=== PATIENT | female | born 1995 | race Caucasian/White ===

== ENCOUNTER → 2020-11-07 13:06 | Outpatient (CLI) | payer OTHER, SELFPAY ==
[2020-11-07 14:57] LABS: Color, Urine Straw (Yellow); Glucose, Dipstick Normal (Normal); Ketone-Dipstick Negative (Negative); Leukocyte Esterase-Dipstick Negative /ul (Negative); Nitrite-Dipstick Negative (Negative); Occult Blood-Urine Negative /ul (Negative); Protein-Dipstick Negative (Negative); Urine Bilirubin Dipstick Negative (Negative); Urine Clarity Clear (Clear); Urine Urobilinogen Normal (Normal); Urine pH 6.5 (5.0 - 8.0)
[2020-11-07 14:58] LABS: Absolute Lymphocyte Count 2.51 X10^3/uL (0.83-4.51); Absolute Neutrophil Count 10.9 X10^3/uL (2.0-7.7); Basophil# 0.06 X10^3/uL; Basophil% 0.4 % (0-1); Eosinophil# 0.17 X10^3/uL; Eosinophils% 1.1 % (0-5); Hematocrit 41.7 % (37-47); Hemoglobin 13.6 g/dL (12.0-15.0); Lymphocyte # 2.51 X10^3/ul (0.83-4.51); Lymphocyte % 16.8 % (19-41); Mean Corp Hgb Conc 32.6 g/dL (32-36); Mean Corpuscular Hgb 28.5 pg (27.0-32.0); Mean Corpuscular Volume 87.4 fL (81-99); Mean Platelet Vol. 9.3 fl (6.2-12.0); NRBC Flagged by Analyzer 0 % (0-5); Neutrophil # 10.89 X10^3/uL (2.7-7.7); Platelet Count 295 K/mm3 (150-450); RBC Distribution Width CV 13.3 % (11.6-14.6); RBC Distribution Width SD 43.1 fl (35.1-43.9); Red Blood Count 4.77 M/mm3 (4.2-5.4); White Blood Count 14.9 K/mm3 (4.4-11.0)
[2020-11-07 15:14] LABS: Amphetamine Urine VISTA NEGATIVE (<1000 ng/mL); Barbiturate Urine VISTA NEGATIVE (< 200 ng/mL); Benzodiazepine Urine VISTA NEGATIVE (< 200 ng/mL); Cocaine Urine VISTA NEGATIVE (< 300 ng/mL); Ecstacy Urine VISTA NEGATIVE (< 500 ng/mL); Methadone Urine VISTA NEGATIVE (< 300 ng/mL); PCP Urine VISTA NEGATIVE (< 25 ng/mL); THC Urine VISTA NEGATIVE (< 50 ng/mL); Vista UDS pH Range 6
[2020-11-07 15:23] LABS: Thyroid Stim Hormone (TSH) 2.16 uIU/mL (0.358-3.74)
[2020-11-07 15:52] LABS: HIV - WCH Non-Reactive (Nonreactive); Hepatitis B Surface Antigen Non-Reactive (Nonreactive); Hepatitis C Antibody Non-Reactive (Nonreactive); Rubella IgG Reactive (Nonreactive); Syphilis Antibodies Non-reactive; Vitamin D,25 Hydroxy 31.6 ng/mL
[2020-11-11 05:07] LABS: Chlamydia By Nucleic Acid AMP Negative (Negative)
[2020-11-11 08:53] LABS: Gonococcus By Nucleic Acid AMP Negative (Negative)
== END ==
PROVIDERS: Visit Provider Obstetrics & Gynecology
DX: Z11.3 Encounter for screening for infections with a predominantly sexual mode of transmission (principal); Z34.81 Encounter for supervision of other normal pregnancy, first trimester
CPT/HCPCS: 36415; 80307; 81002; 82306; 84443; 85025; 86703; 86762; 86780; 86803; 87086; 87088; 87340; 87491; 87591

== ENCOUNTER 2021-04-01 13:34 | Outpatient (CLI) | payer OTHER, SELFPAY ==
[2021-04-01 15:39] LABS: Hematocrit 38.7 % (37-47); Hemoglobin 12.8 g/dL (12.0-15.0); Mean Corp Hgb Conc 33.1 g/dL (32-36); Mean Corpuscular Hgb 29.4 pg (27.0-32.0); Mean Corpuscular Volume 88.8 fL (81-99); Mean Platelet Vol. 9.2 fl (6.2-12.0); Platelet Count 299 K/mm3 (150-450); RBC Distribution Width CV 13.6 % (11.6-14.6); RBC Distribution Width SD 44.2 fl (35.1-43.9); Red Blood Count 4.36 M/mm3 (4.2-5.4); White Blood Count 17.1 K/mm3 (4.4-11.0)
[2021-04-01 16:23] LABS: Progesterone Level 77.15 ng/mL (See Comment)
[2021-04-01 18:09] LABS: Glucose Challenge Gest 1H 50g 115 mg/dL (70-140)
== END 2021-04-01 23:59 | disposition home or self-care (01) ==
LOC: WOBLAB 13:51
PROVIDERS: Visit Provider Obstetrics & Gynecology
DX: Z34.82 Encounter for supervision of other normal pregnancy, second trimester (principal); E28.2 Polycystic ovarian syndrome
CPT/HCPCS: 36415; 82950; 84144; 85027

== ENCOUNTER 2021-05-16 14:17 | Outpatient (CLI) | payer OTHER, SELFPAY ==
[2021-05-16 14:34] VITALS: TEMP 36.8
[2021-05-16 14:37] VITALS: BP 138/61; PULSE 97
[2021-05-16 14:41] VITALS: BMI 45.9
--- NOTE | 2021-05-17 11:33 | PCM.PN.BLA ---
Progress Note 26-year-old G3, P1 at 34/3 weeks presenting for NST for class III obesity and chronic hypertension on labetalol. Patient monitored with nurse at bedside holding on monitor however part of heart rate tracing was broken due to body habitus and obesity. Patient needed to leave prior to a continuous 20-minute strip. However on monitoring that was completed over 50 minutes heart rate was 145/moderate variability/with accelerations/no decelerations. [place] was quiet. Overall status reassuring. Okay for patient to go home with routine monitoring in office.
== END 2021-05-16 23:59 | disposition home or self-care (01) ==
LOC: WPOUT 14:20 → WP 14:22
PROVIDERS: Visit Provider Student in an Organized Health Care Education/Training Program
DX: O16.3 Unspecified maternal hypertension, third trimester (principal); O99.210 Obesity complicating pregnancy, unspecified trimester; Z3A.34 34 weeks gestation of pregnancy
CPT/HCPCS: 59025; 99218; G0378

== ENCOUNTER 2021-05-29 10:52 | Outpatient (CLI) | payer OTHER, SELFPAY | END 2021-05-29 23:59 | disposition home or self-care (01) | LOC: LABSPEC 10:54 | PROVIDERS: Visit Provider Obstetrics & Gynecology | DX: Z36.85 Encounter for antenatal screening for Streptococcus B (principal) | CPT/HCPCS: 87081 ==

== ENCOUNTER 2021-06-09 16:15 | Outpatient (CLI) | payer OTHER, SELFPAY ==
[2021-06-09 16:55] VITALS: BP 139/76; PULSE 98
[2021-06-09 17:07] VITALS: BMI 46.5
[2021-06-09 17:10] VITALS: BP 134/77; PULSE 91
[2021-06-09 17:26] VITALS: BP 136/69; PULSE 86
[2021-06-09 17:40] VITALS: BP 137/67; PULSE 90
[2021-06-09 18:01] LABS: Hematocrit 38.5 % (37-47); Hemoglobin 12.8 g/dL (12.0-15.0); Mean Corp Hgb Conc 33.2 g/dL (32-36); Mean Corpuscular Hgb 28.9 pg (27.0-32.0); Mean Corpuscular Volume 86.9 fL (81-99); Mean Platelet Vol. 9.6 fl (6.2-12.0); Platelet Count 272 K/mm3 (150-450); RBC Distribution Width CV 13.3 % (11.6-14.6); RBC Distribution Width SD 41.9 fl (35.1-43.9); Red Blood Count 4.43 M/mm3 (4.2-5.4); White Blood Count 14.9 K/mm3 (4.4-11.0)
[2021-06-09 18:11] VITALS: BP 136/66; PULSE 88
[2021-06-09 18:26] LABS: Protein, Urine (Random) 18.2 mg/dL (<11.9); Protein:Creat Ratio 203 mg/g CRE (0-200)
[2021-06-09 18:39] LABS: ALB/GLOB Ratio 0.7 RATIO (0.9-2.4); AST(SGOT) 21 U/L (15-37); Alanine Aminotransfer ALT/SGPT 18 U/L (13-56); Albumin, Serum 2.7 g/dL (3.2-5.0); Alkaline Phosphatase 130 U/L (45-117); Anion Gap 7 (5-15); BUN 9 mg/dL (7-18); BUN/Creat Ratio 17.4 RATIO (10-20); Calcium,Total 8.3 mg/dL (8.5-10.1); Chloride 107 mmol/L (98-107); Creatinine, Serum 0.52 mg/dL (0.55-1.02); EST Glomerular Filtration Rate 152 mL/min (>60); Est Glom Filt Rate - Afr Amer 184 mL/min (>60); Estimated Creatinine Clearance 159.43 ml/min; Globulin 4.1 g/dL (2.2-4.2); Glucose 74 mg/dL (74-106); Potassium 3.8 mmol/L (3.5-5.1); Protein, Total 6.8 g/dL (6.4-8.2); Sodium Level 136 mmol/L (136-145); Uric Acid 4.7 mg/dL (2.6-6.0)
[2021-06-09 18:41] VITALS: BP 129/59; PULSE 79
--- NOTE | 2021-06-09 20:31 | OB.TRI.HP_ITS ---
HPI - General HPI Narrative SHALINI BEACH, is a 26 F who presents for r/o preeclampsia. Sent from office for initial elevated BP 176/86 with repeat BP 126/68. Denies headache, vision changes, shortness of breath, abdominal pain. Maternal Data Information ARTHUR Calculator Estimated Delivery Date Method Current WG Current Estimate 06/24/21 LMP (Certain) 37w 6d PFSH PFSH Medical History (Updated 06/09/21 @ 20:[address] Phoebe Charles MD) Anxiety Hypertension PCOS (polycystic ovarian syndrome) Home Medications Myinositol 4 gm PO/SL BID 05/16/21 [History Last Taken 06/09/21 06:00] aspirin [Baby Aspirin] 81 mg PO DAILY 05/16/21 [History Last Taken 06/09/21 06:00] labetalol 100 mg PO BID 05/16/21 [History Last Taken 06/09/21 06:00] [id number] [] 2 tab PO BID 05/16/21 [History Last Taken 06/09/21 06:00] cholecalciferol (vitamin D3) [Vitamin D3] 25 mcg PO DAILY 06/09/21 [History Last Taken 06/09/21 06:00] cod liver oil 15 ml PO DAILY 06/09/21 [History Last Taken 06/09/21 06:00] magnesium 250 mg PO DAILY 06/09/21 [History Last Taken 06/09/21 06:00] Allergy/AdvReac Type Severity Reaction Status Date / Time No Known Allergies Allergy Verified 06/09/21 17:54 Family History (Updated 06/09/21 @ 20:[address] Phoebe Charles MD) Father Hypertension Mother Hypertension Diabetes Surgical History (Updated 06/09/21 @ 20:[address] Phoebe Charles MD) Hx of tonsillectomy Previous section History 3 Elective abortions Hx Para 1 Spontaneous abortions 1 Hx # Term Pregnancies Ectopic pregnancies Hx # Pregnancies Multiple births # of living children Physical Exam Const alert, oriented x3 and no apparent distress General Appearance: cooperative and comfortable HEENT normocephalic Narrative: 0.5/0/-5. moderate and anterior OB / External & Speculum: other Uterus Palpation: other OB Fundus firm and nontender Extremity no calf tenderness NST FHR Rate Baby A Baseline: 125 Variability:: Moderate Accelerations:: 15 x 15 Decelerations:: None NST Reactive:: Yes FHR Category:: Category I Uterine Activity:: 1-04/16 Assessment & Plan (1) Chronic pre-existing hypertension during : PLAN: No worsening, single elevated BP - resolved, attribute to anxiety No sx preeclampsia and labs normal Continue Labetalol bid (2) 37 weeks gestation of : PLAN: TOLAC desired Counseled patient and extensively regarding delivery timing, per ACOG delivery now through 39 6/7 wga for cHTN on medications and indications. Advised IOL this week given AC, maternal obesity, male and EFW 3600g last week increase risk for SD. Discussed r/b IOL for TOLAC including risk for repeat C- section, uterine rupture vs risk for shoulder dystocia increasing with expectant management. Also offered schedule section if undelivered and no onset of labor by 39 6/7wga. Shared decision making employed. Pt declined stripping of membranes due to discomfort of exam. Patient agrees to IOL at 38 2/7wga, plan for nichols bulb with consideration to d/c home if no significant progress with IOL assuming no change in BP or status. Given BPs stable,, no evidence of preeclampsia, d/c home. Charges/Coding Visit Charges Office Visits / Consults: [id number] OV L4 Est
== END 2021-06-09 23:59 | disposition home or self-care (01) ==
LOC: WPOUT 16:24 → WP 16:25
PROVIDERS: Visit Provider Obstetrics & Gynecology
DX: O10.913 Unspecified pre-existing hypertension complicating pregnancy, third trimester (principal); O99.343 Other mental disorders complicating pregnancy, third trimester; F41.9 Anxiety disorder, unspecified; O26.03 Excessive weight gain in pregnancy, third trimester; Z3A.37 37 weeks gestation of pregnancy; Z79.82 Long term (current) use of aspirin; Z79.899 Other long term (current) drug therapy
CPT/HCPCS: 59025; 59050; 80053; 82570; 84156; 84550; 85027; 99218; G0378

== ENCOUNTER 2021-06-12 06:50 | Inpatient (IN) | payer OTHER, SELFPAY ==
[2021-06-12] VITALS (38 sets, daily range): BP systolic 128–199; BP diastolic 60–92; PULSE 72–114; RESP 16; TEMP 36.2–37.2; O2SAT 93–100; BMI 48.2
[2021-06-12] MEDS: Lactated Ringers 1,000 ML 50 ML IV ×2 (08:40→18:00)
[2021-06-12 08:59] LABS: Absolute Lymphocyte Count 1.83 X10^3/uL (0.83-4.51); Absolute Neutrophil Count 11.9 X10^3/uL (2.0-7.7); Basophil# 0.07 X10^3/uL; Basophil% 0.4 % (0-1); Eosinophil# 0.22 X10^3/uL; Eosinophils% 1.4 % (0-5); Hematocrit 36.7 % (37-47); Hemoglobin 12.2 g/dL (12.0-15.0); Lymphocyte # 1.83 X10^3/ul (0.83-4.51); Lymphocyte % 11.7 % (19-41); Mean Corp Hgb Conc 33.2 g/dL (32-36); Mean Corpuscular Volume 87.2 fL (81-99); Mean Platelet Vol. 9.6 fl (6.2-12.0); Monocyte# 1.41 X10^3/uL; NRBC Flagged by Analyzer 0 % (0-5); Neutrophil # 11.85 X10^3/uL (2.7-7.7); Neutrophil % 75.6 % (47-70); Platelet Count 244 K/mm3 (150-450); RBC Distribution Width CV 13.5 % (11.6-14.6); RBC Distribution Width SD 42.4 fl (35.1-43.9); Red Blood Count 4.21 M/mm3 (4.2-5.4); White Blood Count 15.7 K/mm3 (4.4-11.0)
[2021-06-12] MEDS: 0.9% Normal Saline Single 100 ML IV.SOLN. INTRA-UTER (09:10)
--- NOTE | 2021-06-12 09:18 | HP.PCM.OB_ITS ---
HPI - General General Date of Admission: 06/12/21 HPI Narrative SHALINI BEACH, is a 26 F with hx previously section who presents for scheduled induction of labor for chronic hypertension. She denies headache, vision changes, shortness of breath or abdominal pain. Good movement. issues: -Prepregnancy BMI 46 -cHTN on Labetalol -hx PCOS -Prior section Maternal Data Information ARTHUR Calculator Estimated Delivery Date Method Current WG Current Estimate 06/24/21 LMP (Certain) 38w 2d PFSH PFS Medical History (Updated 06/12/21 @ 09:[address] Phoebe Charles MD) Anxiety Hypertension PCOS (polycystic ovarian syndrome) Home Medications Myinositol 4 gm PO/SL BID 05/16/21 [History Last Taken 06/09/21 06:00] aspirin [Baby Aspirin] 81 mg PO DAILY 05/16/21 [History Last Taken 06/09/21 06:00] labetalol 100 mg PO BID 05/16/21 [History Last Taken 06/09/21 06:00] [id number] [] 2 tab PO BID 05/16/21 [History Last Taken 06/09/21 06:00] cholecalciferol (vitamin D3) [Vitamin D3] 25 mcg PO DAILY 06/09/21 [History Last Taken 06/09/21 06:00] cod liver oil 15 ml PO DAILY 06/09/21 [History Last Taken 06/09/21 06:00] magnesium 250 mg PO DAILY 06/09/21 [History Last Taken 06/09/21 06:00] Allergy/AdvReac Type Severity Reaction Status Date / Time No Known Allergies Allergy Verified 06/09/21 17:54 Family History Father Hypertension Mother Hypertension Diabetes Surgical History (Updated 06/12/21 @ 09:[address] Phoebe Charles MD) Hx of tonsillectomy Previous section Social History Smoking Status: Never smoker History 3 Elective abortions Hx Para 1 Spontaneous abortions 1 Hx # Term Pregnancies Ectopic pregnancies Hx # Pregnancies Multiple births # of living children Past Pregnancies Del. Date Name GA/Weeks Outcome Route Bth Weight Gen Labor Lgth Anesthesia Del [facility] Provider FOB Unknown Micheal 38 live - full term [id number] Male epidural Jodi Terrence NST FHR Rate Baby A Baseline: 150 Variability:: Moderate Accelerations:: 15 x 15 Decelerations:: None NST Reactive:: Yes FHR Category:: Category I Uterine Activity:: 0/10 Vital Signs Vital Signs Vital Signs: Weight Weight: 135.5 kg Body Mass Index (BMI) 48.2 Physical Exam Const alert, oriented x3 and no apparent distress HEENT normocephalic Resp normal respiratory effort, normal air movement and clear to auscultation bilaterally Cardio regular rate and regular rhythm GI normal to inspection, nondistended, normoactive bowel sounds, soft to palpation, non-tender and non-distended Inspection: gravid Narrative: 0/0/-5, moderate and anterior US performed - fetus cephalic, OP Neuro deep tendon reflexes 2+ bilaterally Labs Labs Labs: Blood Type O POSITIVE Antibody Screen Pending Hct 36.7 % (37-47) L Hgb 12.2 g/dL (12.0-15.0) Syphilis Total Ab Non-reactive Rubella IgG Antibody Reactive (Nonreactive) Hep Bs Antigen Non-Reactive (Nonreactive) Chlamydia DNA (EM) Negative (Negative) Neisseria gonorrhoeae DNA (EM) Negative (Negative) HIV 1&2 Antibody Non-Reactive (Nonreactive) Glucose 1 Hr 50 gm 115 mg/dL (70-140) Assessment & Plan (1) 38 weeks gestation of : PLAN: Verde bulb placed - 60cc GBS neg (2) Chronic pre-existing hypertension during : PLAN: Labetalol bid (3) Previous delivery affecting , antepartum: PLAN: Counseled on TOLAC vs. repeat section, including risk for uterine rupture approx 0.5-1% with catastrophic rupture approx 1/800. Pt unde rstands emergent section high risk for maternal and complications > scheduled C/S > vaginal delivery. Pt opts to proceed with TOLAC with induction of labor at this time.
[2021-06-12 09:27] LABS: ALB/GLOB Ratio 0.7 RATIO (0.9-2.4); AST(SGOT) 11 U/L (15-37); Alanine Aminotransfer ALT/SGPT 17 U/L (13-56); Albumin, Serum 2.5 g/dL (3.2-5.0); Alkaline Phosphatase 122 U/L (45-117); Anion Gap 5 (5-15); BUN 8 mg/dL (7-18); BUN/Creat Ratio 14.3 RATIO (10-20); Calcium,Total 8.4 mg/dL (8.5-10.1); Chloride 109 mmol/L (98-107); Creatinine, Serum 0.56 mg/dL (0.55-1.02); EST Glomerular Filtration Rate 139 mL/min (>60); Est Glom Filt Rate - Afr Amer 168 mL/min (>60); Estimated Creatinine Clearance 142.51 ml/min; Globulin 3.7 g/dL (2.2-4.2); Glucose 94 mg/dL (74-106); LDH 163 U/L (84-246); Potassium 3.9 mmol/L (3.5-5.1); Protein, Total 6.2 g/dL (6.4-8.2); Sodium Level 137 mmol/L (136-145)
[2021-06-12 10:39] LABS: Protein, Urine (Random) 14.8 mg/dL (<11.9); Protein:Creat Ratio 167 mg/g CRE (0-200)
[2021-06-12] MEDS: Oxytocin 30 units/NS 500 ml 30 UNITS/500 ML IV.SOLN IV (11:59)
[2021-06-12] MEDS: Lactated Ringers 500 ML 999 ML IV (12:42)
--- NOTE | 2021-06-12 17:14 | PN.OBGYN_ITS ---
Subjective Subjective Reports painful contractions. Objective Data Objective Data Vital Signs: Vital Signs Temp Pulse BP Pulse Ox 98.8 F 87 154/82 H 99 06/12/21 16:30 06/12/21 16:35 06/12/21 16:30 06/12/21 16:35 Weight: 135.5 kg Body Mass Index (BMI) 48.2 Intake & Output: Intake and Output for Last 24 Hours 06/10/21 06/11/21 06/12/21 23:59 23:59 23:59 Intake Total 1764.83 / 1764.83 Output Total 550 / 550 Balance 1214.83 / 1214.83 Lab / Micro Data Result Diagrams: 06/12/21 08:40 06/12/21 08:40 Labs: Laboratory Results - last 24 hr 06/12/21 08:40: WBC 15.7 H, RBC 4.21, Hgb 12.2, Hct 36.7 L, MCV 87.2, MCH 29.0, MCHC 33.2, RDW Std Deviation 42.4, RDW Coeff of Laura 13.5, Plt Count 244, MPV 9.6, Immature Gran % (Auto) 1.900 H, Neut % (Auto) 75.6 H, Lymph % (Auto) 11.7 L , [place] % (Auto) 9.0, Eos % (Auto) 1.4, Baso % (Auto) 0.4, Absolute Neuts (auto) 11.9 H, Absolute Lymphs (auto) 1.83, Nucleated RBC % 0 06/12/21 08:40: Blood Type O POSITIVE, Antibody Screen NEGATIVE 06/12/21 08:40: Sodium 137, Potassium 3.9, Chloride 109 H, Carbon Dioxide 23.0, Anion Gap 5, BUN 8, Creatinine 0.56, Estim Creat Clear Calc 142.51, Est GFR (MDRD) Af Amer 168, Est GFR (MDRD) Non-Af 139, BUN/Creatinine Ratio 14.3, Glucose 94, Calcium 8.4 L, Total Bilirubin 0.10 L, AST 11 L, ALT 17, Alkaline Phosphatase 122 H, Lactate Dehydrogenase 163, Total Protein 6.2 L, Albumin 2.5 L , Globulin 3.7, Albumin/Globulin Ratio 0.7 L 06/12/21 10:10: U Random Total Protein 14.8 H, Urine Creatinine 88.80, Protein/Creatinin Ratio 167 Micro: Microbiology 06/12/21 11:55 Nasal Secretion SARS-CoV-2 Antigen (Rapid) - Final Physical Exam Narrative GEN - breathing through contractions FHR 135, moderate variability, + acceleration present, no decelerations, some loss of contact TOCO 3/10 min SVE Verde bulb mid cervix - traction replaced Assessment & Plan (1) 38 weeks gestation of : PLAN: Verde bulb remains in situ Continue pitocin as tolerated by mother and fetus (2) Previous delivery affecting , antepartum: (3) Chronic pre-existing hypertension during : PLAN: BPs mildly elevated Preeclamptic labs normal
[2021-06-12] MEDS: Labetalol 100 MG Tablet PO (18:03)
[2021-06-12] MEDS: Lactated Ringers 1,000 ML 999 ML IV (20:40)
--- NOTE | 2021-06-12 20:52 | PN.OBGYN_ITS ---
Subjective Subjective Reports contractions stopped when nichols bulb came out. Objective Data Objective Data Vital Signs: Vital Signs Temp Pulse BP Pulse Ox 97.3 F L 88 141/71 H 98 06/12/21 20:06 06/12/21 20:06 06/12/21 20:06 06/12/21 20:06 Weight: 135.5 kg Body Mass Index (BMI) 48.2 Intake & Output: Intake and Output for Last 24 Hours 06/10/21 06/11/21 06/12/21 23:59 23:59 23:59 Intake Total 2263.36 / 2263.36 Output Total 550 / 550 Balance 1713.36 / 1713.36 Lab / Micro Data Result Diagrams: 06/12/21 08:40 06/12/21 08:40 Labs: Laboratory Results - last 24 hr 06/12/21 08:40: WBC 15.7 H, RBC 4.21, Hgb 12.2, Hct 36.7 L, MCV 87.2, MCH 29.0, MCHC 33.2, RDW Std Deviation 42.4, RDW Coeff of Laura 13.5, Plt Count 244, MPV 9.6, Immature Gran % (Auto) 1.900 H, Neut % (Auto) 75.6 H, Lymph % (Auto) 11.7 L , [place] % (Auto) 9.0, Eos % (Auto) 1.4, Baso % (Auto) 0.4, Absolute Neuts (auto) 11.9 H, Absolute Lymphs (auto) 1.83, Nucleated RBC % 0 06/12/21 08:40: Blood Type O POSITIVE, Antibody Screen NEGATIVE 06/12/21 08:40: Sodium 137, Potassium 3.9, Chloride 109 H, Carbon Dioxide 23.0, Anion Gap 5, BUN 8, Creatinine 0.56, Estim Creat Clear Calc 142.51, Est GFR ( MDRD) Af Amer 168, Est GFR (MDRD) Non-Af 139, BUN/Creatinine Ratio 14.3, Glucose 94, Calcium 8.4 L, Total Bilirubin 0.10 L, AST 11 L, ALT 17, Alkaline Phosphatase 122 H, Lactate Dehydrogenase 163, Total Protein 6.2 L, Albumin 2.5 L , Globulin 3.7, Albumin/Globulin Ratio 0.7 L 06/12/21 10:10: U Random Total Protein 14.8 H, Urine Creatinine 88.80, Protein/Creatinin Ratio 167 Micro: Microbiology 06/12/21 11:55 Nasal Secretion SARS-CoV-2 Antigen (Rapid) - Final Physical Exam Narrative GEN - NAD, AAO x 3 SVE 06/29/-3, soft and anterior NST FHR Rate Baby A Baseline: 130 Variability:: Moderate Accelerations:: 15 x 15 Decelerations:: None NST Reactive:: Yes FHR Category:: Category I Uterine Activity:: irritability Assessment & Plan (1) 38 weeks gestation of : (2) Chronic pre-existing hypertension during : (3) Previous delivery affecting , antepartum: PLAN: Cat I FHR Nichols bulb out Not in active labor on pitocin Discussed amniotomy as next step in induction, patient declined. Extensive discussion with patient and family regarding estimated trial of labor success, continuation of induction with amniotomy and offered section with review of risk, benefits each. Patient requested transfer of care/second o constantine, thus pitocin discontinued. I reviewed care with MFM per patient request ultimately with plan to continue care here given induction started. In further discussion and counseling regarding risks, benefits, patient opts for section. Will proceed with section.
[2021-06-12] MEDS: Sodium Citrate/Citric Acid 30 ML UDC PO (21:10)
[2021-06-12] MEDS: Acetaminophen 500 MG Tablet 1000 MG PO (21:10)
--- NOTE | 2021-06-12 23:46 | OP.PCM_ITS ---
Assessment & Plan (1) Previous delivery affecting , antepartum: (2) 38 weeks gestation of : (3) Chronic pre-existing hypertension during : Maternal Data Information ARTHUR Calculator Estimated Delivery Date Method Current WG Current Estimate 06/24/21 LMP (Certain) 38w 2d Details Operative Information Date of Procedure: 06/12/21 Pre-Operative Diagnosis: 1. 38 2/7 weeks gestation 2. Previous LTCS Post-Operative Diagnosis: 1. 38 2/7 weeks gestation 2. Previous LTCS Indications for : - (Prior section) Indications Narrative: 26yo @ 38 2/7 weeks gestational with history of prior LTCS presented for IOL for chronic hypertension well controlled on medication. She progressed to 4cm dilation with nichols bulb, pitocin. She declined amniotomy and following discussion opted to proceed with repeat section. Procedural r/b/i/a were reviewed at length and patient desired to proceed. Classification: SAMMY Procedure Type: low transverse prosthetic aides teacher #1: Eleonora Talley Type of Anesthesia: Epidural Anesthesiologist: Digna Glaser Antibiotic Given: Ancef 2 grams IV x1 Drain: Nichols to straight drain Estimated Blood Loss: 600 ml Fluids Replaced: 1100 ml Findings Description of Procedure: The patient was taken to the operating room and spinal analgesia was administered. She is placed in a dorsal supine position with left lateral tilt. The perineum and abdomen were prepped and draped in sterile fashion. And the spinal was found to be adequate. A Pfannenstiel incision was made using a scalpel and brought down to incise the subcutaneous tissue and rectus fascia at the midline. Subcutaneous tissue was bluntly dissected off the fascia laterally. The fascial incision was dissected laterally and cephalad using curved Gallardo scissors. The superior leaflet of the rectus fascia was grasped using Angela clamps and bluntly dissected and sharply dissected from the underlying rectus muscle. In a similar fashion the inferior rectus fascia was dissected from the underlying muscle. The rectus muscles were bluntly at the midline. The peritoneum was identified and entered [sharply]. The bladd er blade was placed into the abdomen and the vesicouterine peritoneal fold identified. The fold was incised and a bladder flap created. Bladder blade was then repositioned to the abdomen. A low transverse hysterotomy was made using the [Metzenbaum scissors] to level of the membranes. The hysterotomy was extended bluntly cephalad and caudad. The membranes were then ruptured revealing clear fluid. The head was elevated and brought to the level of the hysterotomy and the infant delivered revealing vigorous [male] infant. The cord was doubly clamped and cut after 60 seconds. The infant was passed to awaiting [nursery personnel]. The placenta was [expressed] from the uterus and appeared intact on inspection. The uterus was exteriorized and cleared of debris. The hysterotomy was then repaired using 0 Vicryl running lock suture. A second imbricating layer was also placed for additional hemostasis. Additional figure of eight sutures were placed with hemostasis attained. The bladder blade was removed. The anterior cul-de-sac was cleared of debris. The peritoneum was reapproximated using 2-0 Vicryl running suture. The rectus fascia was closed using 0 Vicryl running suture. The subcutaneous tissue was sponge irrigated and small capillary bleeding controlled using the Bovie device. The subcutaneous tissue was reapproximated using 2-0 Vicryl. The skin was closed using 4-0 Monocryl subcuticularly. A Mepilex occlusive dressing was placed over the incision. The fundus was firm. The patient was then transferred to the recovery room without complication. Sponge, instrument, and needle counts were correct ?2. Presentation: Positive for Vertex Amniotic Membrane Rupture Type: Artificial Amniotic Fluid Description: Clear Placental Delivery Description: Spontaneous Placenta Disposition: [facility] Cord Vessel Description: 3 Vessels Cord Entanglement: None A Gender: Male (1 minute): 8 (5 minute): 9 Delayed Cord Clamping: Yes Complications Risks of Surgery Discussed w/Patient: Bleeding, Anesthesia Risks and Injury to surrounding structure(s) including bowel and bladder
[2021-06-12] MEDS: Oxytocin 30 units/NS 500 ml 30 UNITS/500 ML IV.SOLN 167 UNITS IV (23:55)
[2021-06-13] VITALS (16 sets, daily range): BP systolic 102–135; BP diastolic 42–70; PULSE 70–98; RESP 13–18; TEMP 36.2–37; O2SAT 95–98
--- NOTE | 2021-06-13 00:17 | NURSING ---
epidural placed, no fentanyl ran through tubing. pump was never started. epidural placed to ease pt anxiety about getting it placed in an emergency situation.
--- NOTE | 2021-06-13 00:41 | NURSING ---
see anesthesia record for spinal attempts and epidural placement.
[2021-06-13] MEDS: Acetaminophen 500 MG Tablet 1000 MG PO ×4 (01:08→21:10)
[2021-06-13] MEDS: Ketorolac 30 MG/ML Syringe IV ×4 (01:09→18:30)
[2021-06-13] MEDS: Lactated Ringers 1,000 ML 100 ML IV (03:00)
[2021-06-13 06:24] LABS: Hematocrit 31.6 % (37-47); Hemoglobin 10.7 g/dL (12.0-15.0); Mean Corp Hgb Conc 33.9 g/dL (32-36); Mean Corpuscular Hgb 29.2 pg (27.0-32.0); Mean Corpuscular Volume 86.1 fL (81-99); Mean Platelet Vol. 9.6 fl (6.2-12.0); Platelet Count 218 K/mm3 (150-450); RBC Distribution Width CV 13.4 % (11.6-14.6); RBC Distribution Width SD 41.7 fl (35.1-43.9); Red Blood Count 3.67 M/mm3 (4.2-5.4); White Blood Count 15.7 K/mm3 (4.4-11.0)
[2021-06-13] MEDS: Cefazolin 1 GM/50 ML BAG IV ×2 (06:41→14:39)
--- NOTE | 2021-06-13 09:13 | PN.OBGYN_ITS ---
Subjective Subjective Postoperative day 1. Pain well controlled. Having some back pain, improved with heating pad. Lochia minimal. Working on breast-feeding. Objective Data Objective Data Vital Signs: Vital Signs Temp Pulse Resp BP Pulse Ox 97.7 F L 84 16 109/57 L 98 06/13/21 06:23 06/13/21 06:23 06/13/21 06:23 06/13/21 06:23 06/13/21 06:23 Oxygen Delivery Method Room Air Weight: 135.5 kg Body Mass Index (BMI) 48.2 Intake & Output: Intake and Output for Last 24 Hours 06/11/21 06/12/21 06/13/21 23:59 23:59 23:59 Intake Total 3621.68 / 3621.68 750 / 750 Output Total 950 / 950 200 / 200 Balance 2671.68 / 2671.68 550 / 550 Lab / Micro Data Result Diagrams: 06/13/21 06:18 06/12/21 08:40 Labs: Laboratory Results - last 24 hr 06/12/21 08:40: Blood Type O POSITIVE, Antibody Screen NEGATIVE 06/12/21 08:40: Sodium 137, Potassium 3.9, Chloride 109 H, Carbon Dioxide 23.0, Anion Gap 5, BUN 8, Creatinine 0.56, Estim Creat Clear Calc 142.51, Est GFR (MDRD) Af Amer 168, Est GFR (MDRD) Non-Af 139, BUN/Creatinine Ratio 14.3, Glucose 94, Calcium 8.4 L, Total Bilirubin 0.10 L, AST 11 L, ALT 17, Alkaline Phosphatase 122 H, Lactate Dehydrogenase 163, Total Protein 6.2 L, Albumin 2.5 L , Globulin 3.7, Albumin/Globulin Ratio 0.7 L 06/12/21 10:10: U Random Total Protein 14.8 H, Urine Creatinine 88.80, Protein/Creatinin Ratio 167 06/13/21 06:18: WBC 15.7 H, RBC 3.67 L, Hgb 10.7 L, Hct 31.6 L, MCV 86.1, MCH 29.2, MCHC 33.9, RDW Std Deviation 41.7, RDW Coeff of Laura 13.4, Plt Count 218, MPV 9.6 Micro: Microbiology 06/12/21 11:55 Nasal Secretion SARS-CoV-2 Antigen (Rapid) - Final Physical Exam Const alert, oriented x3 and no apparent distress HEENT normocephalic Head and Scalp: atraumatic Neck full ROM Resp normal respiratory effort Cardio regular rate GI normal to inspection, nondistended, normoactive bowel sounds GI Narrative: Uterus 2 cm below umbilicus, dressing clean and dry Back/Spine normal ROM Extremity normal to inspection Extremity Narrative: Minimal pedal edema Neuro no focal motor deficits and no sensory deficits noted Psych mental status grossly normal and affect normal Assessment & Plan (1) Delivery by section: PLAN: Postop day 1 status post repeat section. Complicated by chronic hypertension: Blood pressures well controlled today, continued on labetalol 100 mg every 12 hours. Acute blood loss anemia secondary to surgery, iron supplement on discharge. Pain controlled. Breast-feeding. Discharge home tomorrow. (2) Chronic hypertension: (3) Acute blood loss as cause of postoperative anemia: (4) Other acute postprocedural pain:
[2021-06-13] MEDS: 0.9% Saline Lock 10 ML Syringe IV ×3 (09:35→18:30)
[2021-06-13] MEDS: Senna/Docusate Sodium 1 Tablet PO (09:35)
[2021-06-13] MEDS: Enoxaparin 40 MG/0.4 ML Syringe SC ×2 (10:30→23:38)
[2021-06-14 01:20] VITALS: BP 120/59; PULSE 85; RESP 16; TEMP 36.7
[2021-06-14] MEDS: Acetaminophen 500 MG Tablet 1000 MG PO ×2 (01:21→06:59)
[2021-06-14] MEDS: Ibuprofen 600 MG Tablet PO ×2 (01:50→09:35)
--- NOTE | 2021-06-14 07:33 | PCM.PN.OB ---
Subjective Subjective Postop day 2. Lochia minimal. Pain controlled. Objective Data Objective Data Vital Signs: Vital Signs Temp Pulse Resp BP Pulse Ox 98.1 F 85 16 120/59 L 98 06/14/21 01:20 06/14/21 01:20 06/14/21 01:20 06/14/21 01:20 06/13/21 09:18 Oxygen Delivery Method Room Air Weight: 135.5 kg Body Mass Index (BMI) 48.2 Intake & Output: Intake and Output for Last 24 Hours 06/12/21 06/13/21 06/14/21 23:59 23:59 23:59 Intake Total 3621.68 / 3621.68 1458.33 / 1458.33 Output Total 950 / 950 1200 / 1200 Balance 2671.68 / 2671.68 258.33 / 258.33 Lab / Micro Data Result Diagrams: 06/13/21 06:18 06/12/21 08:40 Micro: Microbiology 06/12/21 11:55 Nasal Secretion SARS-CoV-2 Antigen (Rapid) - Final Physical Exam Const alert, oriented x3 and no apparent distress HEENT normocephalic Head and Scalp: atraumatic Neck full ROM Resp normal respiratory effort Cardio regular rate GI normal to inspection, nondistended, normoactive bowel sounds GI Narrative: Uterus 2 cm below umbilicus. Dressing clean and dry. Back/Spine normal ROM Extremity normal to inspection Extremity Narrative: Minimal pedal edema Neuro no focal motor deficits and no sensory deficits noted Psych mental status grossly normal and affect normal Assessment & Plan (1) Delivery by section: PLAN: Postop day 2 status post repeat section. Complicated by chronic hypertension: Blood pressures well controlled. Discontinue labetalol on discharge. Acute blood loss anemia secondary to surgery, iron supplement on home-going. Desires discharge home today. Follow-up 2 weeks postop visit. (2) Other acute postprocedural pain: (3) Chronic hypertension:
--- NOTE | 2021-06-14 07:34 | PCM.DC ---
Discharge Instructions Diet Discharge Diet: No restrictions Activity Discharge Activity: Return to Normal Activity and May Shower May resume sexual activity in: 4-6 weeks Weight Bearing Status: Weight bearing as tolerated Lifting Restrictions: No greater than 25 pounds Dressing / Incision Call your doctor if your incision/area has: Continuous Slow Oozing, Increased Pain/ Swelling, Increased Redness and Foul Smelling Discharge Call your doctor if you observe: Fever of 101 or Higher, Change in Color, Inability to urinate, Using more than 1 pad per hour, Shortness of breath, Dizziness, Swelling in the ankles, Chest pain and Calf discomfort Remove Dressing in: 1 week Cleanse incision/area with: Soap & Water Follow Up Care Please Follow Up With: Phoebe Bellamy MD When: 2-week post operative appointment and 6-week visit Test Results: Test results from this visit will be discussed in further detail at your follow-up appointment, if applicable. Discharge Plan Admission Admit Date/Time: 06/12/21 06:50 Primary Reason for Your Visit: Section Attending Provider: Phoebe Bellamy Discharge Orders/Prescriptions Prescriptions: New oxycodone 5 mg Tablet 5 mg PO Q6H PRN (Reason: pain) 4 Days Qty: 16 RF: 0 Continued [id number]-[id number]-FA 1 mg Tablet 2 tab PO BID RF: 0 cod liver oil Oil 15 ml PO DAILY RF: 0 cholecalciferol (vitamin D3) [Vitamin D3] 25 mcg (1,000 unit) Capsule 25 mcg PO DAILY RF: 0 Discontinued aspirin [Baby Aspirin] 81 mg Tablet,Chewable 81 mg PO DAILY RF: 0 labetalol 100 mg Tablet 100 mg PO BID RF: 0 Myinositol 4 gm PO/SL BID RF: 0 magnesium 250 mg Tablet 250 mg PO DAILY RF: 0 Disposition Disposition (needs filled in before D/C Order can be placed): Home, Self Care
[2021-06-14 09:30] VITALS: BP 128/66; PULSE 91; RESP 16; TEMP 36.4
[2021-06-14] MEDS: Enoxaparin 40 MG/0.4 ML Syringe SC (09:35)
== END 2021-06-14 11:10 | disposition home or self-care (01) | DRG 787 ==
PROVIDERS: Admitting Provider Obstetrics & Gynecology; Visit Provider Obstetrics & Gynecology
DX: O34.211 Maternal care for low transverse scar from previous cesarean delivery (principal); O10.02 Pre-existing essential hypertension complicating childbirth; D62 Acute posthemorrhagic anemia; O90.81 Anemia of the puerperium; Z3A.38 38 weeks gestation of pregnancy; Z37.0 Single live birth; Z79.82 Long term (current) use of aspirin; Z79.899 Other long term (current) drug therapy
CPT/HCPCS: 59025; 59050; 76815; 80053; 82570; 83615; 84156; 85025; 85027; 86850; 86900; 86901; 87426; 99218; J7120; A4216; G0378; J2405; J3490